=== PATIENT | male | born 1980 | race Caucasian/White ===

== ENCOUNTER 2019-12-04 16:01 | Emergency (ER) | payer MEDICAID ==
[~2019-12-04] VITALS: Ht 175.3 cm; Wt 68.0 kg
[2019-12-04 16:18] VITALS: BP 135/78
--- NOTE | 2019-12-04 16:30 | NUR ---
PT STATES THAT HE HAS NOT EATEN OR DRINK WATER FOR ABOUT 3-4 DAYS AND THAT HE WANTS TO HAVE A MEAL FOR DINNER. PT DENIES ANY SI THAT TRIAGE NURSE STATES, AND THAT HE JUST WANTS TO REST. PT AOX4, BREATHING EVEN AND UNLABORED, SKIN WARM AND DRY. BED IN LOWEST POSITION, LOCKED, BED RAIL UPX1. PMH - DENIES ALLERGIES - NKA
[2019-12-04] MEDS ORDERED: NACL 0.9% 1,000 ML IV ONE (16:35)
--- NOTE | 2019-12-04 16:45 | NUR ---
EDUCATED PT OF IMPORTANCE OF PUTTING IV AND DRAWING BLOOD, STATES HE DOES NOT CARE AND DOES NOT WANT A NEEDLE IN HIM. GAVIN MILLER MADE AWARE
--- NOTE | 2019-12-04 16:55 | NUR ---
GAVIN MILLER AT BEDSIDE, PT STATES HE WILL NOT ALLOW ANY NEEDLES INTO HIM.
--- NOTE | 2019-12-04 17:11 | NUR ---
PT STATES HE DOES NOT WANT TO GIVE URINE, STATES HE WANTS TO SPEAK TO GAVIN MILLER. GAVIN MILLER MADE AWARE
--- NOTE | 2019-12-04 17:30 | NUR ---
PT REFUSING CARE. PT WILL AMA. PT UNDERSTANDS THE RISKS EXPLAINED.
--- NOTE | 2019-12-04 17:31 | NUR ---
REPORT GIVEN TO BUTCH OLIVARES, TRANSFER OF CARE AT THIS TIME
--- NOTE | 2019-12-04 17:49 | NUR ---
Patient does not wish to proceed with medical care recommended by DR. JENNINGS/PAUL. Patient given information related to possible complications, up to and including , which could occur as a result of leaving hospital at this time. Patient verbalizes understanding of risks involved leaving against medical advice. Patient has signed AMA form.PT VSS PRIOR TO LEAVING AMA.
[2019-12-04 17:50] VITALS: BP 135/78
== END 2019-12-04 17:50 | disposition left against medical advice (07) ==
LOC: MED 16:01
DX: E46 Unspecified protein-calorie malnutrition (principal)
CPT/HCPCS: 99281

== ENCOUNTER 2019-12-06 14:33 | Emergency (ER) | payer MEDICAID ==
[~2019-12-06] VITALS: Ht 170.2 cm; Wt 77.1 kg
--- NOTE | 2019-12-06 14:33 | NUR ---
Patient BIBA BLS, transferred to bed 4. RN evaluating patient at bedside.
[2019-12-06 14:38] VITALS: BP 95/53
--- NOTE | 2019-12-06 14:52 | NUR ---
PT SEEN WITH C/O GENERALIZED ACHES AND WEAKNESS. PT DROWSY BUT ORIENTED, ABLE TO MOVE ALL EXTREMITIES EQUALLY. NO SOB, CP, OR ANY OTHER COMPLAINTS AT THIS TIME. PT RESTING WITH NO SIGNS OF DISTRESS.
--- NOTE | 2019-12-06 15:08 | NUR ---
GAVIN Sow is evaluating the patient at bedside.
[2019-12-06] MEDS ORDERED: NACL 0.9% 1,000 ML IV ONE (15:10)
--- NOTE | 2019-12-06 15:16 | NUR ---
Dr. Bergeron is evaluating the patient at bedside.
[2019-12-06 15:40] LABS: BASOPHILS # (AUTO) 0.1 K/uL (0.00-0.22); BASOPHILS % (AUTO) 0.8 % (0.0-2.0); EOSINOPHILS # (AUTO) 0.4 K/uL (0-0.4); EOSINOPHILS % (AUTO) 4.8 % (0.0-4.0); HEMATOCRIT 42.7 % (36-52); HEMOGLOBIN 14.6 g/dL (12.0-18.0); LYMPHOCYTES # (AUTO) 2.4 K/uL (2.0-11.5); LYMPHOCYTES % (AUTO) 26.9 % (20.5-51.1); MEAN CORPUSCULAR HEMOGLOBIN 29 pg (27-31); MEAN CORPUSCULAR HGB CONC 34 g/dL (33-37); MEAN CORPUSCULAR VOLUME 84.2 fL (80-94); MONOCYTES # (AUTO) 0.6 K/uL (0.8-1.0); MONOCYTES % (AUTO) 6.1 % (1.7-9.3); NEUTROPHILS # (AUTO) 5.5 K/uL (1.8-7.7); NEUTROPHILS % (AUTO) 61.4 % (42.2-75.2); PLATELET COUNT (AUTO) 272 K/uL (140-450); RED BLOOD CELL COUNT(AUTO) 5.07 MIL/uL (4.20-6.10); RED CELL DISTRIBUTION WIDTH 13.7 % (11.6-13.7)
[2019-12-06 15:58] LABS: ALBUMIN 3.6 g/dL (3.4-5.0); ANION GAP 10.3 (8-16); CARBON DIOXIDE 28.6 mmol/L (21-32); CREATININE 1.1 mg/dL (0.6-1.3); POTASSIUM 3.9 mmol/L (3.5-5.1); TOTAL BILIRUBIN 0.5 mg/dL (0.0-1.0)
--- NOTE | 2019-12-06 16:16 | NUR ---
WENT TO PT'S BEDSIDE TO NOTIFY HIM OF D/C AND REMOVE IV. PT STATED HE WAS SUICIDAL. PA NOTIFIED AND WENT TO BEDSIDE TO EVALUATE PT. IV LEFT IN PLACE FOR NOW PER ORDER.
--- NOTE | 2019-12-06 16:33 | NUR ---
ALL PTS BELONGING REMOVED FROM PT'S POSSESSION.
--- NOTE | 2019-12-06 16:49 | NUR ---
Dr. Watkins is evaluating the patient via telepsychiatry.
--- NOTE | 2019-12-06 18:28 | NUR ---
PT GIVEN DISCHARGE INSTRUCTIONS. PT QUESTIONED IF HE IS ON A 72HR HOLD. I EXPLAINED TO PT HE IS NOT AND THE PHYSICIAN IS DISCHARGING HIM. PHYSICIAN ALLOWING PT TO WAIT IN WAITING ROOM TO SPEAK TO SOCIAL WORK WHEN THEY ARRIVE IN AM TO DISCUSS DISCHARGE CONCERNS.
== END 2019-12-06 18:31 | disposition home or self-care (01) ==
LOC: MED 14:33
DX: M79.10 Myalgia, unspecified site (principal); R45.851 Suicidal ideations
CPT/HCPCS: 36415; 80053; 81002; 85025; 99283

== ENCOUNTER 2019-12-07 04:25 | Emergency (ER) | payer MEDICAID ==
[~2019-12-07] VITALS: Ht 175.3 cm; Wt 68.0 kg
[2019-12-07 04:30] VITALS: BP 122/76
--- NOTE | 2019-12-07 04:35 | NUR ---
PT TAKEN BED 12
--- NOTE | 2019-12-07 04:45 | NUR ---
39 yo male ambulated to bed 12 with c/o chest pain and general malaise. Pt is unkempt and malodorous. Skin is warm and dry. respirations are regular and unlabored. Pt is awake, alert and oriented. chest pain rated 10/10 and is non-radiating. c/o nausea, medicated as ordered. Pt was seen yesterday and was discharged at approx 1900 for similar complaints.
--- NOTE | 2019-12-07 04:59 | NUR ---
Dr. Harman examining patient.
[2019-12-07] MEDS: ONDANSETRON 4 MG ODT PO ONE (05:10)
[2019-12-07 06:35] VITALS: BP 122/76
--- NOTE | 2019-12-07 06:35 | NUR ---
Pt discharged ambulatory in NAD. ACI in posession with understanding expressed. ID band removed
== END 2019-12-07 06:35 | disposition home or self-care (01) ==
LOC: MED 04:25
DX: R11.10 Vomiting, unspecified (principal); M79.10 Myalgia, unspecified site
CPT/HCPCS: 36415; 82550; 84484; 93005; 99284; Q0162

== ENCOUNTER 2019-12-07 07:24 | Emergency (ER) | payer MEDICAID ==
[~2019-12-07] VITALS: Ht 175.3 cm; Wt 68.0 kg
[2019-12-07 07:28] VITALS: BP 121/68
--- NOTE | 2019-12-07 07:36 | NUR ---
PATIENT AMBULATED TO BED 8.
--- NOTE | 2019-12-07 07:37 | NUR ---
39 y/o male c/o dizziness and nausea since yesterday. Denies vomiting/diarrhea. RR even and unlabored. Pt positioned upright. States he wants to sleep. Denies pain at this time. medhx:HIV
--- NOTE | 2019-12-07 07:54 | NUR ---
Dr Blackburn at bedside examining pt
[2019-12-07] MEDS: MECLIZINE 25 MG TAB PO ONE (08:08)
[2019-12-07] MEDS: ONDANSETRON 4 MG ODT PO ONE (08:09)
--- NOTE | 2019-12-07 08:13 | NUR ---
Covid swab collected and sent to lab.
--- NOTE | 2019-12-07 08:53 | NUR ---
cellophane worker called, spoke to Joanna and she stated that she would advise [facility].
--- NOTE | 2019-12-07 08:53 | NUR ---
inventory worker at bedside speaking to patient
--- NOTE | 2019-12-07 09:03 | NUR ---
Patient discharged with v/s stable. Written and verbal after care instructions given and explained. Patient alert, oriented and verbalized understanding of instructions. Ambulatory with steady gait. All questions addressed prior to discharge. ID band removed. Patient advised to follow up with PMD. Rx of Meclizine 25mg and Zofran 4mg given. Patient educated on indication of medication including possible reaction and side effects. Opportunity to ask questions provided and answered. Pt given bus pass upon discharge.
[2019-12-07 09:04] VITALS: BP 121/68
== END 2019-12-07 09:03 | disposition home or self-care (01) ==
LOC: MED 07:24
DX: R42 Dizziness and giddiness (principal)
CPT/HCPCS: 87426; 99283; J8597; Q0162